=== PATIENT | male | born 1965 | race Caucasian/White ===

== ENCOUNTER 2018-06-10 07:55 | Outpatient (CLI) | payer BC ==
--- NOTE | 2018-06-10 10:20 | ULT ---
BILATERAL RENAL ULTRASOUND: Date: 06/10/18 INDICATION: Chronic kidney disease. FINDINGS: The right kidney measures 10.4 x 5.6 x 7.1 cm. The right renal cortical thickness is 1.7 cm. The left kidney measures 11.0 x 5.3 x 6.7 cm. The left renal cortical thickness is 1.4 cm. No hydronephrosis or focal solid renal lesion is demonstrated. Pre-void bladder volume is 115.2 mL. IMPRESSION: No focal solid renal lesion or hydronephrosis. POS: NATALIE
== END 2018-06-10 07:56 | disposition home or self-care (01) ==
LOC: SCSULT 07:55
PROVIDERS: ATTEND Internal Medicine Nephrology
DX: N18.3 Chronic kidney disease, stage 3 (moderate) (principal)
CPT/HCPCS: 76770

== ENCOUNTER 2020-12-23 12:08 | Outpatient (CLI) | payer BC | END 2020-12-23 12:09 | disposition home or self-care (01) | LOC: BICRAD 12:08 | PROVIDERS: ATTEND Family Medicine | DX: M77.52 Other enthesopathy of left foot and ankle (principal) ==

== ENCOUNTER 2021-10-03 16:30 | Outpatient (CLI) | payer BC | END 2021-10-03 16:31 | disposition home or self-care (01) | LOC: SLEEPLAB 16:30 | PROVIDERS: ATTEND Family Medicine | DX: G47.33 Obstructive sleep apnea (adult) (pediatric) (principal); R53.83 Other fatigue; R06.83 Snoring; G47.00 Insomnia, unspecified; G47.31 Primary central sleep apnea | CPT/HCPCS: 95806 ==